=== PATIENT | male | born 1985 | race African-American/Black ===

== ENCOUNTER 2017-10-17 21:13 | Emergency (ER) | payer BC, SELFPAY ==
[~2017-10-17] VITALS: Ht 188 cm; Wt 97.5 kg
[~2017-10-17 21:13] MED LIST: IBUPROFEN600 MG ORAL; NKM
[2017-10-17 21:30] VITALS: BP 160/87
[2017-10-17] MEDS ORDERED: Norco 5mg/325mg tab ORAL ONE (21:30)
[2017-10-17] MEDS ORDERED: IBUPROFEN600 MG ORAL (21:33)
[2017-10-17] MEDS ORDERED: AUGMENTIN 875-1 EAC1 ORAL (21:33)
--- NOTE | 2017-10-17 21:34 | Emergency Room Report ---
History of Present Illness General Chief Complaint: Earache Source: Patient Present Illness HPI This is a 31-year-old male with no past medical history presents with chief complaint of sore throat and body pain for the last to 3 days. Also which are productive fever. No cough or congestion. Does have ear pain. Hard to swallow. Pain is 9 out of 10. Able to tolerate his saliva and liquids. Allergies: Coded Allergies: No Known Allergies (Unverified , 10/17/17) Patient History Past Medical History: see triage record, old chart reviewed Past Surgical History: none Pertinent Family History: none Social History: Denies: smoking Immunizations: other Reviewed Nursing Documentation: PMH: Agreed; PSxH: Agreed Nursing Documentation-PMH Past Medical History: No Stated History Review of Systems Constitutional: Reports: fever, malaise Eye: Denies: eye pain, blurred vision ENT: Reports: ear pain, throat pain, throat swelling Respiratory: Denies: cough, shortness of breath Cardiovascular: Denies: chest pain, palpitations Gastrointestinal: Denies: abdominal pain, diarrhea, nausea, vomiting Musculoskeletal: Denies: back pain, joint pain Skin: Denies: rash Neurological: Denies: headache, numbness Endocrine: Denies: increased thirst, increased urine Hematologic/Lymphatic: Denies: easy bruising All Other Systems: negative except mentioned in HPI Physical Exam Vital Signs Date Time Temp Pulse Resp B/P (MAP) Pulse Ox O2 Delivery O2 Flow Rate FiO2 10/17/17 21:15 99.5 84 16 160/87 99 Room Air 99.5 vitals with high blood pressure Sp02 EP Interpretation: reviewed, normal General Appearance: well appearing, no apparent distress, alert Head: normocephalic, atraumatic Eyes: bilateral eye PERRL, bilateral eye EOMI ENT: hearing grossly normal, uvula midline, tonsillar swelling, pharyngeal erythema, tonsillar exudate, other - no trismus Neck: full range of motion, supple, no meningismus, other - cervical adenopathy Respiratory: chest non-tender, lungs clear, normal breath sounds Cardiovascular #1: regular rate, rhythm, no murmur Gastrointestinal: normal bowel sounds, non tender, no mass, no organomegaly, no bruit, non-distended Musculoskeletal: back normal, gait/station normal, normal range of motion Psychiatric: mood/affect normal Skin: warm/dry Medical Decision Making Diagnostic Impression: Primary Impression: Acute tonsillitis Qualified Codes: J03.00 - Acute streptococcal tonsillitis, unspecified ER Course Patient with a tonsillitis most likely strep. No evidence of peritonsillar abscess, retropharyngeal abscess or Zachary angina. We'll discharge home. Last Vital Signs Date Time Temp Pulse Resp B/P (MAP) Pulse Ox O2 Delivery O2 Flow Rate FiO2 10/17/17 21:15 99.5 84 16 160/87 99 Room Air 99.5 Status: improved Disposition: HOME, SELF-CARE Condition: Stable Scripts Ibuprofen* (MOTRIN*) 600 Mg Tablet 600 MG ORAL THREE TIMES A DAY, #30 TAB 0 Refills Prov: ALFRED SINHA M.D. 10/17/17 Amoxicillin/Potassium Clav 875-125* (AUGMENTIN 875-125 TABLET*) 1 Each Tablet 1 TAB ORAL TWICE A DAY, #14 TAB Prov: ALFRED SINHA M.D. 10/17/17 Additional Instructions: Increase fluids. Salt water gargle. Follow-up with your in 2-3 days for recheck if not better. Return if worse. ALFRED SINHA M.D. Oct 17, 2017 21:34
[2017-10-17 21:51] VITALS: BP 160/87
== END 2017-10-17 21:50 | disposition home or self-care (01) ==
LOC: EMR 21:30
DX: J03.90 Acute tonsillitis, unspecified (principal)
CPT/HCPCS: 99284; J7512

== ENCOUNTER 2018-08-09 00:08 | Emergency (ER) | payer SELFPAY ==
[~2018-08-09] VITALS: Ht 188 cm; Wt 97.5 kg
[~2018-08-09 00:08] MED LIST changes: +AUGMENTIN 875-1 EAC1 ORAL
[2018-08-09 00:22] VITALS: BP 125/82
--- NOTE | 2018-08-09 00:42 | Emergency Room Report ---
History of Present Illness General Chief Complaint: Upper Extremity Injury Source: Patient Present Illness [facility] This is a 32-year-old male who is right-hand dominant. He presents with chief complaint of right arm pain. He said he woke up with this 2 days ago. Pain is mostly to the elbow area. Worse with movement. Cant straighten it out. No nausea no vomiting. No fever chills. No trauma. Pain is 10 out of 10. He's had no relief with the Percocet that he received from his friend. He had similar symptom last year when he woke up with leg pain. Again no trauma. No heavy lifting or pulling. Allergies: Coded Allergies: No Known Allergies (Unverified , 10/17/17) Patient History Past Medical History: see triage record, old chart reviewed Past Surgical History: none Pertinent Family History: none Social History: Denies: smoking Immunizations: other Reviewed Nursing Documentation: PMH: Agreed; PSxH: Agreed Nursing Documentation-PMH Past Medical History: No Stated History Review of Systems Eye: Denies: eye pain, blurred vision ENT: Denies: ear pain, nose congestion, throat swelling Respiratory: Denies: cough, shortness of breath Cardiovascular: Denies: chest pain, palpitations Gastrointestinal: Denies: abdominal pain, diarrhea, nausea, vomiting Musculoskeletal: Reports: joint pain, joint swelling, muscle pain; Denies: back pain Skin: Denies: rash Neurological: Denies: headache, numbness Endocrine: Denies: increased thirst, increased urine Hematologic/Lymphatic: Denies: easy bruising All Other Systems: negative except mentioned in HPI Physical Exam Vital Signs Date Time Temp Pulse Resp B/P (MAP) Pulse Ox O2 Delivery O2 Flow Rate FiO2 08/09/18 00:12 98.4 82 18 125/82 94 Room Air Sp02 EP Interpretation: reviewed, normal General Appearance: well appearing, no apparent distress, alert Head: normocephalic, atraumatic Eyes: bilateral eye PERRL, bilateral eye EOMI ENT: hearing grossly normal, normal pharynx Neck: full range of motion, supple, no meningismus Respiratory: chest non-tender, lungs clear, normal breath sounds Cardiovascular #1: regular rate, rhythm, no murmur Gastrointestinal: normal bowel sounds, non tender, no mass, no organomegaly, no bruit, non-distended Musculoskeletal: back normal, gait/station normal, other - Right upper extremity: He has tenderness to the insertion site of the tricep by the elbow. He also has tenderness to the soft tissue of the proximal elbow. Unable to fully extend the arm. Pain with extension against resistance. Pulses normal. No warmth or redness. Neurologic: alert, oriented x3 Psychiatric: mood/affect normal Skin: warm/dry Medical Decision Making Diagnostic Impression: Primary Impression: Right arm pain ER Course Patient presents with right arm pain.. His pain mostly to the tricep and proximal elbow area. There is no trauma. He has normal pulses. No risk factor for DVT. Is no infection. X-ray and CT scan negative. We'll discharge home. Other X-Ray Diagnostic Results Other X-Ray Diagnostic Results : X-Ray ordered: Right elbow x-rays # of Views/Limited Vs Complete: 3 View Indication: Pain EP Interpretation: Yes Interpretation: no dislocation, no soft tissue swelling, no fractures Impression: No acute disease Electronically Signed by: Isra Damico MD CT/MRI/US Diagnostic Results CT/MRI/US Diagnostic Results : Imaging Test Ordered: CT right upper extremity Impression read by radiologist. Neg Last Vital Signs Date Time Temp Pulse Resp B/P (MAP) Pulse Ox O2 Delivery O2 Flow Rate FiO2 08/09/18 00:22 98.4 78 18 125/82 94 Room Air Status: improved Disposition: HOME, SELF-CARE Condition: Stable Scripts Ibuprofen* (MOTRIN*) 600 Mg Tablet 600 MG ORAL THREE TIMES A DAY, #30 TAB 0 Refills Prov: Isra Damico MD 08/09/18 Hydrocodone/Acetaminophen 5-325* (HYDROCODONE/ACETAMINOPHEN 5-325*) 1 Each Tablet 1 TAB ORAL Q6H PRN for For Pain, #15 TAB 0 Refills Prov: Isra Damico MD 08/09/18 Referrals: NOT CHOSEN [facility]/,REFERRING (PCP) Additional Instructions: Wearing a sling. Follow-up with your doctor in 7 days. May need MRI if not better. Return if worse. Isra Damico MD Aug 09, 2018 00:42
--- NOTE | 2018-08-09 01:13 | Diagnostic Imaging Report ---
EXAM: XR Right Elbow Complete, 3 or More Views CLINICAL HISTORY: PAIN TECHNIQUE: Frontal, lateral and oblique views of the right elbow. COMPARISON: No relevant prior studies available. FINDINGS/IMPRESSION: There is obliquity on the lateral view limiting evaluation. No acute fracture or dislocation is identified. Repeat lateral view could be obtained, as indicated.
[2018-08-09] MEDS ORDERED: HYDROCODON-ACE1 EA15 ORAL (02:34)
[2018-08-09] MEDS ORDERED: IBUPROFEN600 MG ORAL (02:34)
[2018-08-09 02:46] VITALS: BP 130/80
--- NOTE | 2018-08-09 03:07 | Diagnostic Imaging Report ---
EXAM: CT Right Upper Extremity Without Intravenous Contrast CLINICAL HISTORY: PAIN TECHNIQUE: Axial computed tomography images of the right upper extremity without intravenous contrast. CTDI is 5.61 mGy and DLP is 190 mGy-cm. One or more of the following dose reduction techniques were used: automated exposure control, adjustment of the mA and/or kV according to patient size, use of iterative reconstruction technique. COMPARISON: No relevant prior studies available. FINDINGS/IMPRESSION: Images presented in axial and sagittal planes. Soft tissue windows in axial plane. No acute fracture or dislocation. Joint effusion.
== END 2018-08-09 02:45 | disposition home or self-care (01) ==
LOC: EMR 00:29
DX: M79.601 Pain in right arm (principal)
CPT/HCPCS: 99284

== ENCOUNTER 2018-12-05 23:47 | Emergency (ER) | payer SELFPAY ==
[~2018-12-05] VITALS: Ht 188 cm; Wt 97.5 kg
[~2018-12-05 23:47] MED LIST changes: +HYDROCODON-ACE1 EA15 ORAL
[2018-12-06] VITALS: BP 152/70
--- NOTE | 2018-12-06 | NUR ---
ED Nurse Note: Pt stated he has poor appetite since 2 weeks. Pt denies pain. patient also states that he has been unable to sleep as well. patient is alert and oriented x4, ambulatory with a steady gait, VSS
--- NOTE | 2018-12-06 00:32 | Emergency Room Report ---
History of Present Illness General Chief Complaint: General Complaint Source: Patient Present Illness HPI 32-year-old male who recently quit promethazine and codeine, now feeling withdrawal-like symptoms, loss of appetite, he went through the acute phase over the past 2 weeks of diarrhea nausea and vomiting now he just feels like not eating anything no SI HI, patient is asking for something to help him sleep better. He denies any chest pain shortness of breath, severity is mild, characterization is reduced appetite, no known aggravating or alleviating factors. Allergies: Coded Allergies: No Known Allergies (Unverified , 10/17/17) Patient History Past Medical History: see triage record Nursing Documentation-PMH Past Medical History: No Stated History Review of Systems All Other Systems: negative except mentioned in HPI Physical Exam Vital Signs Date Time Temp Pulse Resp B/P (MAP) Pulse Ox O2 Delivery O2 Flow Rate FiO2 12/05/18 23:51 98.2 91 18 164/78 (106) 96 Room Air Sp02 EP Interpretation: reviewed, normal General Appearance: well appearing, no apparent distress, alert Head: normocephalic, atraumatic Eyes: bilateral eye PERRL, bilateral eye EOMI ENT: uvula midline, moist mucus membranes Neck: supple, thyroid normal, supple/symm/no masses Respiratory: lungs clear, no respiratory distress, no retraction, no accessory muscle use Cardiovascular #1: normal peripheral pulses, regular rate, rhythm, no edema, no gallop, no murmur Gastrointestinal: non tender, soft, no guarding, no rebound Musculoskeletal: normal inspection Neurologic: alert, oriented x3 Psychiatric: mood/affect normal Skin: no rash, warm/dry Medical Decision Making Diagnostic Impression: Primary Impression: Encounter for generalized patient complaints Additional Impression: Opioid withdrawal ER Course he presents with most likely opioid withdrawal-like symptoms, patient counseled on a diet, no evidence of dehydration, disposition home with return precautions Patient counseled on the BRAT diet Last Vital Signs Date Time Temp Pulse Resp B/P (MAP) Pulse Ox O2 Delivery O2 Flow Rate FiO2 12/05/18 23:51 98.2 91 18 164/78 (106) 96 Room Air Disposition: HOME, SELF-CARE Condition: Stable Referrals: NOT CHOSEN [facility]/,REFERRING (PCP) [facility] Patient Instructions: Dehydration, Adult, [id number], Fatigue, Opioid Withdrawal Additional Instructions: The patient was provided with discharge instructions, notified to follow-up with a primary care doctor and or specialist in the next 24-48 hours, and to return to the ED if they have worsening of their symptoms. Please note that this report is being documented using DRAGON technology. This can lead to erroneous entry secondary to incorrect interpretation by the dictating instrument. Edenilson Patterson MD Dec 06, 2018 00:32
[2018-12-06] MEDS ORDERED: BENADRYL25 M3 PO (00:36)
[2018-12-06 00:45] VITALS: BP 149/72
--- NOTE | 2018-12-06 00:45 | NUR ---
ER DISCHARGE NOTE: Patient is cleared to be discharged per ERMD, pt is aox4, on room air, with stable vital signs. pt was given dc and prescription instructions, pt was able to verbalize understanding, pt id band removed without complications. pt is able to ambulate with steady gait. pt took all belongings.
== END 2018-12-06 00:45 | disposition home or self-care (01) ==
LOC: EMR 23:59
DX: F11.23 Opioid dependence with withdrawal (principal)
CPT/HCPCS: 99281